=== PATIENT | female | born 1950 | race Caucasian/White ===

== ENCOUNTER → 2019-11-21 14:42 | Outpatient (BNVA) | payer MEDICARE, OTHER, SELFPAY | PROVIDERS: Family Provider Family Medicine; PCP Family Medicine; Referring Provider Family Medicine; Visit Provider Otolaryngology | DX: H92.01 Otalgia, right ear (principal); H93.11 Tinnitus, right ear; R51 Headache; M54.2 Cervicalgia | CPT/HCPCS: 99204; 99214 ==

== ENCOUNTER 2019-12-10 12:27 | Outpatient (CLI) | payer MEDICARE, OTHER, SELFPAY ==
--- NOTE | 2019-12-10 12:31 | CT_ITS ---
WS: [id number] CT CHEST, ABDOMEN AND PELVIS WITH CONTRAST HISTORY: BLADDER CANCER/COMPARE TO LAST CT TECHNIQUE: Contiguous 5 mm axial imaging performed through the chest, abdomen and pelvis with IV cont rast, oral contrast has been provided. Coronal and sagittal reformats chest. Coronal and sagittal ref ormats through the abdomen and pelvis. All CT scans at [facility] use at least one of the se dose optimization techniques: automated exposure control; mA and/or kV adjustment per patient size (includes targeted exams where dose is matched to clinical indication); or iterative reconstruction. CONTRAST: Omnipaque 300; 95 mL IV. DLP: 1941.29 mGy.cm COMPARISON: 07/15/[address]: No mass or nodule. There is some vague groundglass attenuation at the lingula which was not present on the prior study. No pleural effusion or pericardial effusion. Heart size is normal. No me diastinal or hilar adenopathy. Atherosclerosis aorta is mild. More extensive calcification in the cor onary arteries. Small hiatal hernia. Abdomen CT: Hepatic steatosis. No bile duct dilatation or mass. Gallbladder, spleen and pancreas are negative for any acute process. No adrenal mass. Kidneys are normal size with no enhancing masses. Mi ld atherosclerosis aorta with no aneurysm. No adenopathy, free fluid or free air in the abdomen. Pelvic CT: Nondistended urinary bladder. Surgical clips are noted within the adnexa. No free fluid or adenopathy. Appendix is not definitely visualized. Moderate spondylitic changes throughout the thora cic and lumbar spine. Most significant degenerative changes at L4-5. No osteoblastic or osteolytic milad ne disease. CT/CT chest abd pel wo/w con IMPRESSION: 1. No metastatic disease within the chest, abdomen or pelvis. 2. Postsurgical changes in the pelvis are stable. 3. New groundglass attenuation in the lingula. May be an area of inflammation. Consider [address] follow-up. 4. Hepatic steatosis.
[2019-12-10 13:27] LABS: Blood Urea Nitrogen 15 mg/dL (8-23); Glomerular Filtration Rate 62.1 mL/min (90-130)
[2019-12-10] MEDS: iohexol 300 mg/mL 100 mL Btl IV (14:00)
== END 2019-12-10 12:28 | disposition home or self-care (01) ==
LOC: CT 12:28
PROVIDERS: Family Provider Family Medicine; PCP Family Medicine; Visit Provider Radiology Radiation Oncology
DX: C67.9 Malignant neoplasm of bladder, unspecified (principal); K76.0 Fatty (change of) liver, not elsewhere classified
CPT/HCPCS: 36415; 71260; 74178; 82565; 84520

== ENCOUNTER → 2019-12-11 13:34 | Outpatient (BNVA) | payer MEDICARE, OTHER, SELFPAY | PROVIDERS: Family Provider Family Medicine; PCP Family Medicine; Visit Provider Otolaryngology | DX: H92.01 Otalgia, right ear (principal); H93.91 Unspecified disorder of right ear; H93.13 Tinnitus, bilateral; R51 Headache; M54.2 Cervicalgia | CPT/HCPCS: 99213; 99214 ==

== ENCOUNTER 2019-12-16 09:47 | Outpatient (CLI) | payer MEDICARE, OTHER, SELFPAY ==
--- NOTE | 2019-12-16 11:33 | ONCRAD EPV_ITS ---
Radiation Oncology Established Patient Visit Patient: Clif MR#: [id number] : 1950> Age: 69> Sex: Female> Dictated by: Dr. Gallito Leija Date of Service: 12/16/2019 Referring Physician(s) : Dr. Murali Cisse Diagnosis: C67.9 - Malignant neoplasm of bladder, unspecified, Diagnosed 12/12/2017 (Active) Stage II, T2, N0, M0 Radiotherapy to Date: Course: C1 Treatment Site: BLADDER BOOST [id number] Ref. ID: [id number] Energy: 6X Dose/Fx (cGy): 200 #Fx: Dose Correction (cGy): 0 Total Dose (cGy): 2,200 Start Date: 03/20/2018 End Date: 04/03/2018 Elapsed Days: 14 Course: C1 Treatment Site: [id number] Ref. 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 She underwent a cystoscopy by Dr. Cisse in 01/2019. It showed no evidence of residual or recurrent disease according to the patient. She underwent a CT of abdomen pelvis on 03/11/2019. It showed no lymphadenopathy or metastatic disease. Nondistended urinary bladder makes evaluation of the bladder neoplasm difficult. Groundglass and subpleural opacifications in the right lower lobe are probably postinflammatory/infectious. Follow-up CT of chest/abdomen/pelvis on 07/15/2019 showed no evidence of metastatic disease in the chest, abdomen or pelvis. Previously described right lower lobe pulmonary infiltrates has resolved completely. There is no suspicious pulmonary parenchymal opacities, mediastinal, hilar, inguinal or pelvic lymphadenopathy. The patient is doing well. She denies dysuria, frequency, hematuria, urgency, nocturia, incontinence, diarrhea, rectal irritation or bleeding. She underwent cystoscopy by Dr. Cisse 2 month ago which showed no evidence of recurrence in the bladder. She underwent a CT of chest/abdomen/pelvis on December 10, 2019 which showed no definite evidence of metastatic disease in the chest, abdomen or pelvis. Postsurgical changes in the pelvis are stable. A new groundglass attenuation in the lingula may be an area of inflammation, consider 6-month CT of the chest follow-up. Current Medications: Acetaminophen, atorvastatin Calcium, aZO Cranberry, co Q 10, hair/Skin/Nails, lisinopril-Hydrochlorothiazide, multi For Her 50+, nabumetone, omeprazole. Allergies: No Known Allergies Current Complaints / Review of Systems: Constitutional - Complains of moderate fatigue. Denies lack of appetite, fever and night sweats. Eyes - Denies blurred vision. ENMT - Complains of ear pain on the right side. Complains of tinnitus. Denies dysphagia, problems with hearing, mouth dryness, stomatitis and altered taste. Neck - Denies neck pain. Integumentary - Denies rash. Breasts - Denies pain. Cardiovascular - Denies arrhythmias, chest pain and edema. Respiratory - Denies cough, dyspnea and wheezing. Gastrointestinal - Complains of occasional diarrhea. Denies abdominal pain, constipation, heartburn / dyspepsia, melena / GI bleeding, nausea and vomiting. Genitourinary (F) - Complains of nocturia gets up about 1 to 2 times per night. Denies dysuria, frequency, hematuria, urgency, vaginal discharge / bleeding and vaginal spotting. Musculoskeletal - Denies bone pain and joint pain. Neurologic - Denies dizziness, abnormal gait and headaches. Endocrine - Denies diabetes and thyroid disease. Hematologic/Lymphatic - Denies tender or enlarged lymph nodes.. Vital Signs: Performed on 12/16/2019 10:18 AM BMI - 33.088 kg/m2 (high), Height - 66.00 in, Weight - 205.0 lbs, Temperature - 97.9 f, Pulse - 72, Respiration - 18, O2 Sat - 95 % (low), Pain - 0 and BP - 114/ 72 mm(hg). Physical Exam: General: Alert and oriented x 3. No acute distress. HEENT: Normocephalic, atraumatic. Extraocular Movements Intact: Pupils Equal, Round, Reactive to Light and Accommodation: Sclerae anicteric. Oral cavity is clear without lesions, masses or ulcers. NECK: Supple without supraclavicular or jugular lymphadenopathy. LUNGS: Clear to auscultation bilaterally without rales, rhonchi or wheeze. HEART: Regular rate and rhythm, normal S1 and S2 without murmur, gallop or rub. MUSCULOSKELETAL: No tenderness or percussion pain over the axial skeleton, scapulae or pelvis. ABDOMEN: Soft, nontender, nondistended without masses or organomegaly. Bowel sounds are present. EXTREMITIES: No peripheral edema is identified. Limited motor and sensory examination are grossly intact and symmetric bilaterally. NEUROLOGIC: Cranial nerves II ???XII are grossly intact. Normal sensation, strength 5/5 in all extremities, normal gait, no ataxia. Performance Status: 1 - No physically strenuous activity, but ambulatory and able to carry out light or sedentary work (e.g. office work, light house work). (ECOG) Lab: None pending. Pathology: papillary transitional cell carcinoma Imaging: See HPI Impression/plan: There is no definite clinical evidence of recurrence or metastatic disease. The patient will continue cancer surveillance. She will see Dr. Cisse and undergo cystoscopy in January 2020. I will order a CT of the chest abdomen and pelvis in 6 months. She will follow up with us afterwards. Signed by: 12/16/2019 11:31:50 AM <<Signature on File>> CPT Code: CPT Code: Signed By: Dr. Gallito Leija, 12/16/2019 11:31:51 AM <<Signature on File>>
== END 2019-12-16 09:48 | disposition home or self-care (01) ==
LOC: ONCMED 09:52
PROVIDERS: Family Provider Family Medicine; PCP Family Medicine; Visit Provider Radiology Radiation Oncology
DX: Z08 Encounter for follow-up examination after completed treatment for malignant neoplasm (principal); Z85.51 Personal history of malignant neoplasm of bladder; Z92.3 Personal history of irradiation
CPT/HCPCS: 99213

== ENCOUNTER 2019-12-20 14:24 | Outpatient (CLI) | payer MEDICARE, OTHER, SELFPAY ==
--- NOTE | 2019-12-20 15:52 | CT_ITS ---
WS: [id number] CT TEMPORAL BONES TECHNIQUE: Noncontrast CT of the temporal bones with coronal and sagittal reformatted images. CLINICAL INFORMATION: ear problem COMPARISON: None. DLP: [address] scans at [facility] use at least one of these dose optimization techniques: automat ed exposure control; mA and/or kV adjustment per patient size (includes targeted exams where dose is matched to clinical indication); or iterative reconstruction. FINDINGS: Mastoid air cells are well aerated. Fluid within the ethmoid air cells consistent with mild sinusitis. Mild mucosal thickening in the paranasal sinuses. Normal visualized posterior nasopharynx . RIGHT: Mastoid air cells are well aerated. Normal external auditory canal. Ossicles are normal in appearance . Middle ear is well aerated. Normal tegmen tympani. Semicircular canals and cochlea are normal in ap pearance. Prussak's space is normal. Normal inner ear structures. Normal vestibular aqueduct. Facial nerve recess is normal. LEFT: Mastoid air cells are well aerated. Normal external auditory canal. Ossicles are normal in appearance . Middle ear is well aerated. Normal tegmen tympani. Semicircular canals and cochlea are normal in ap pearance. Prussak's space is normal. Normal inner ear structures. Normal vestibular aqueduct. Facial nerve recess is normal. Visualized intracranial contents and posterior fossa are normal. CT/CT temporal bone wo con* [id number] IMPRESSION: 1. Mastoid air cells are well aerated bilaterally. 2. Middle ears are well aerated bilaterally. 3. Normal ossicles and inner ear structures bilaterally 4. Unremarkable temporal bones.
== END 2019-12-20 14:25 | disposition home or self-care (01) ==
LOC: CT 14:25
PROVIDERS: Family Provider Family Medicine; PCP Family Medicine; Visit Provider Otolaryngology
DX: H93.90 Unspecified disorder of ear, unspecified ear (principal); R51 Headache
CPT/HCPCS: 70480

== ENCOUNTER → 2019-12-26 14:02 | Outpatient (BNVA) | payer MEDICARE, OTHER, SELFPAY | PROVIDERS: Family Provider Family Medicine; PCP Family Medicine; Visit Provider Otolaryngology | DX: H92.01 Otalgia, right ear (principal); R51 Headache; M54.2 Cervicalgia; H93.13 Tinnitus, bilateral; H93.90 Unspecified disorder of ear, unspecified ear | CPT/HCPCS: 99213; 99214 ==

== ENCOUNTER 2019-12-26 15:02 | Outpatient (CLI) | payer MEDICARE, OTHER, SELFPAY ==
[2019-12-26 16:35] LABS: Erythrocyte Sedimentation Rate 12 mm/hr (0-15)
== END 2019-12-26 15:03 | disposition home or self-care (01) ==
LOC: LAB 15:08
PROVIDERS: Family Provider Family Medicine; PCP Family Medicine; Visit Provider Otolaryngology
DX: M31.6 Other giant cell arteritis (principal)
CPT/HCPCS: 36415; 85651

== ENCOUNTER → 2020-01-23 09:51 | Outpatient (BNVA) | payer MEDICARE, OTHER, SELFPAY | PROVIDERS: Family Provider Family Medicine; PCP Family Medicine; Referring Provider Otolaryngology; Visit Provider Specialist | DX: M79.7 Fibromyalgia (principal); M54.2 Cervicalgia; Z87.891 Personal history of nicotine dependence | CPT/HCPCS: 20552; 99204; J1030; J3490 ==

== ENCOUNTER → 2020-03-11 10:19 | Outpatient (BNVA) | payer MEDICARE, OTHER, SELFPAY | PROVIDERS: Family Provider Family Medicine; PCP Family Medicine; Visit Provider Specialist | DX: M54.81 Occipital neuralgia (principal); M54.2 Cervicalgia; H93.11 Tinnitus, right ear; Z87.891 Personal history of nicotine dependence | CPT/HCPCS: 64450; 99213; J1030; J3490 ==

== ENCOUNTER → 2020-06-17 13:35 | Outpatient (BNVA) | payer MEDICARE, OTHER, SELFPAY | PROVIDERS: Family Provider Family Medicine; PCP Family Medicine; Visit Provider Urology | DX: C67.2 Malignant neoplasm of lateral wall of bladder (principal); N30.40 Irradiation cystitis without hematuria; R33.8 Other retention of urine | CPT/HCPCS: 81001 ==

== ENCOUNTER 2020-06-19 09:20 | Outpatient (CLI) | payer MEDICARE, OTHER, SELFPAY ==
--- NOTE | 2020-06-19 09:34 | CT_ITS ---
WS: [id number] CT CHEST, ABDOMEN AND PELVIS WITH CONTRAST HISTORY: RESTAGING MALIGNANT NEOPLASM OF BLADDER TECHNIQUE: Contiguous 5 mm axial imaging performed through the chest, abdomen and pelvis with IV cont rast, oral contrast has been provided. Coronal and sagittal reformats chest. Coronal and sagittal ref ormats through the abdomen and pelvis. All CT scans at [facility] use at least one of the se dose optimization techniques: automated exposure control; mA and/or kV adjustment per patient size (includes targeted exams where dose is matched to clinical indication); or iterative reconstruction. CONTRAST: Omnipaque 300; 95 mL IV. DLP: 2325.04 mGycm COMPARISON: 12/10/2019 and 07/15/[address]: Very minimal interstitial thickening and dependent changes in the posterior superior segmen t of the lower lungs and also in the lateral RIGHT lower lobe. These findings are new since the prior study. No suspicious masses. Mild atherosclerosis aorta and coronary artery calcifications. No signi ficant mediastinal or hilar adenopathy. Small hiatal hernia. No osteoblastic or osteolytic bone disea se. Spondylitic changes are moderate in the mid to lower thoracic spine. Abdomen CT: Diffuse moderate hepatic steatosis. No metastatic disease. Gallbladder, spleen, pancreas and adrenal glands are stable. No metastatic disease. Mildly lobulated renal cortex. No obstruction o r solid mass. Atherosclerosis aorta. No aneurysms. No adenopathy or ascites. No GI tract obstruction. Pelvic CT: No free fluid or adenopathy. Prior hysterectomy. Urinary bladder is not distended. There a re numerous surgical clips in the pelvis. Moderate degenerative disc disease throughout the lumbar spine. No osteoblastic or osteolytic disease to suggest metastatic bone disease. CT/CT chest abd pel w con* IMPRESSION: 1. No evidence for metastatic disease to the chest, abdomen and pelvis. 2. New minimal peripheral areas of subpleural opacification superior segments of the lower lobes and lateral RIGHT lower lobe. May be related to pneumonitis. This would not be typical for metastatic disease. More likely inflammatory carlos g disease. 3. Prior hysterectomy. 4. Hepatic steatosis.
[2020-06-19] MEDS: iohexol 300 mg/mL 50 mL Btl PO (10:15)
[2020-06-19 10:57] LABS: Blood Urea Nitrogen 16 mg/dL (8-23)
[2020-06-19] MEDS: iohexol 300 mg/mL 100 mL Btl IV (11:05)
== END 2020-06-19 09:21 | disposition home or self-care (01) ==
LOC: RADWPI 09:24
PROVIDERS: Family Provider Family Medicine; PCP Family Medicine; Visit Provider Radiology Radiation Oncology
DX: C67.9 Malignant neoplasm of bladder, unspecified (principal); K76.0 Fatty (change of) liver, not elsewhere classified
CPT/HCPCS: 71260; 74177; 82565; 84520; Q9967

== ENCOUNTER 2020-06-22 06:08 | Outpatient (CLI) | payer MEDICARE, OTHER, SELFPAY ==
--- NOTE | 2020-06-22 14:40 | ONCRAD EPV_ITS ---
Radiation Oncology Established Patient Visit Patient: Wu Wright [id number] : 1950> Age: 70> Sex: Female> Dictated by: Dr. Pradip Menjivar Date of Service: 06/22/2020 Referring Physician(s) : Dr. Murali Cisse Diagnosis T2 N0 M0 Grade II, papillary transitional cell carcinoma involving the left posterior and posterior lateral bladder wall just cephalad and lateral to the left ureteral orifice. Treatment Rendered: -) Trans urethral resection of bladder tumor x2 -) Definitive concurrent chemoradiation therapy. Radiation consisted of an aggregate dose of 65.2 Gy over 35 fractions, via IMRT with 6X energy (02/12/2018-04/03/2018). Concurrent chemotherapy consisted of Q3 weekly cisplatin & 5-FU. Current History: In follow-up today, the patient reports no complaints. She reports no hematuria, no diarrhea, no dysuria, no abdominal pain, no shortness of breath, and no bone pain. Her most recent CT of the chest abdomen and pelvis (06/19/2020 versus 12/10/2019 and 07/15/2019) revealed no concern for disease recurrence or metastasis. There were new minimal peripheral areas of subpleural opacification in the superior segments of the lower lobes and lateral right lower lobe which radiographically appeared related to pneumonitis. Radiographically it was considered more likely to be inflammatory lung disease. The patient's most recent cystoscopy (06/17/2020) revealed diffuse radiation cystitis changes, but no evidence for disease recurrence. Current Medications: Acetaminophen, atorvastatin Calcium, aZO Cranberry, co Q 10, hair/Skin/Nails, lisinopril-Hydrochlorothiazide, multi For Her 50+, nabumetone, omeprazole. Allergies: No Known Allergies Current Complaints / Review of Systems: Constitutional - Complains of mild fatigue. Denies lack of appetite, fever, night sweats and change in weight. Eyes - Denies blurred vision and double vision. ENMT - Denies dysphagia, ear pain, mouth dryness, stomatitis and altered taste. Neck - Denies neck pain. Integumentary - Denies rash. Breasts - Denies pain. Cardiovascular - Denies arrhythmias, chest pain and edema. Respiratory - Denies cough, dyspnea and wheezing. Gastrointestinal - Denies abdominal pain, constipation, diarrhea, heartburn / dyspepsia, melena / GI bleeding, nausea and vomiting. Genitourinary (F) - Complains of nocturia gets up about 1 to 3 times per night and urgency with standing up if had been sitting for awhile. Denies dysuria, frequency, hematuria, vaginal discharge / bleeding and vaginal spotting. Musculoskeletal - Complains of joint pain both knees and the neck. Denies bone pain and muscle weakness. Neurologic - Denies dizziness, abnormal gait and headaches. Endocrine - Denies diabetes and thyroid disease. Hematologic/Lymphatic - Denies tender or enlarged lymph nodes.. Vital Signs: Performed on 06/22/2020 11:30 AM BMI - 33.185 kg/m2 (high), Height - 66.00 in, Weight - 205.6 lbs, Temperature - 97.6 f, Pulse - 82, Respiration - 20, O2 Sat - 94 % (low), Pain - 0 and BP - 127/ 76 mm(hg). Physical Exam: General: Alert and oriented x 3. No acute distress. HEENT: Normocephalic, atraumatic. Extraocular Movements Intact: Pupils Equal, Round, Reactive to Light and Accommodation: Sclerae anicteric. Oral cavity is clear without lesions, masses or ulcers. NECK: Supple without supraclavicular or jugular lymphadenopathy. LUNGS: Clear to auscultation bilaterally without rales, rhonchi or wheeze. HEART: Regular rate and rhythm, normal S1 and S2 without murmur, gallop or rub. MUSCULOSKELETAL: No tenderness or percussion pain over the axial skeleton, scapulae or pelvis. EXTREMITIES: No peripheral edema is identified. Limited motor and sensory examination are grossly intact and symmetric bilaterally. NEUROLOGIC: Cranial nerves II ???XII are grossly intact. Normal sensation, strength 5/5 in all extremities, normal gait, no ataxia. Performance Status: 1 - No physically strenuous activity, but ambulatory and able to carry out light or sedentary work (e.g. office work, light house work). (ECOG) Lab: None pending. Impression: The patient is a 70-year-old female with T2 N0 M0 papillary transitional cell carcinoma involving the left posterior and posterior lateral bladder wall just cephalad and lateral to the left ureteral orifice. She has been treated with definitive concurrent chemoradiation therapy to a total dose of 65.2 Gy/35 fractions (completed 03/2018). The patient is 2 years out from completing definitive treatment, and she has no evidence for disease recurrence per a recent CT of the chest abdomen and pelvis (06/19/2020), as well as a recent cystoscopy (06/17/2020). The patient reports no symptoms consistent with late complications from therapy. I have requested the patient return for follow-up in [address] of the chest abdomen and pelvis. It is recommended that her surveillance going forward consist of: -) Annual CT of the chest abdomen and pelvis x3 years (i.e., up to and including 05/2023); -) Cystoscopy every 6 months x 2 years, followed by annual cystoscopy until 03/2028. Signed by, MD Dr. Pradip Keating06/22/2020 2:38:25 PM <<Signature on File>> Time spent with patient: CPT Code: CPT Code:
== END 2020-06-22 06:09 | disposition home or self-care (01) ==
PROVIDERS: PCP Family Medicine; Visit Provider Radiology Radiation Oncology
DX: Z08 Encounter for follow-up examination after completed treatment for malignant neoplasm (principal); Z85.51 Personal history of malignant neoplasm of bladder; Z92.3 Personal history of irradiation; Z92.21 Personal history of antineoplastic chemotherapy
CPT/HCPCS: 99213

== ENCOUNTER → 2021-01-04 10:17 | Outpatient (BNVA) | payer MEDICARE, OTHER, SELFPAY | PROVIDERS: PCP Family Medicine; Visit Provider Urology | DX: C67.2 Malignant neoplasm of lateral wall of bladder (principal); N30.40 Irradiation cystitis without hematuria; R33.8 Other retention of urine; I10 Essential (primary) hypertension; M19.90 Unspecified osteoarthritis, unspecified site; Z90.710 Acquired absence of both cervix and uterus; E78.00 Pure hypercholesterolemia, unspecified; Z98.890 Other specified postprocedural states | CPT/HCPCS: 81003 ==

== ENCOUNTER 2021-01-28 08:18 | Outpatient (CLI) | payer MEDICARE, OTHER, SELFPAY ==
--- NOTE | 2021-01-28 08:25 | MM_ITS ---
WS: [id number] BILATERAL SCREENING DIGITAL MAMMOGRAM WITH CAD HISTORY: SCREENING COMPARISON: 02/10/2017 and 01/27/2016 Bilateral CC and MLO views submitted. Computer aided detection analyzed. Breast composition: The breasts are heterogeneously dense, which may obscure small masses. No suspici ous masses, microcalcifications or architectural distortion. Benign scattered calcifications. MM/[id number] IMPRESSION: BI-RADS: 2-Benign FOLLOW UP: 1 Year Follow-up
== END 2021-01-28 08:19 | disposition home or self-care (01) ==
LOC: RADSHAW 08:25
PROVIDERS: PCP Family Medicine; Visit Provider Family Medicine
DX: Z12.31 Encounter for screening mammogram for malignant neoplasm of breast (principal)
CPT/HCPCS: 77067

== ENCOUNTER 2022-04-01 09:04 | Outpatient (CLI) | payer MEDICARE, OTHER, SELFPAY ==
--- NOTE | 2022-04-01 09:19 | MM_ITS ---
WS: [id number] VIEWS: MLO and CC views both breasts. 3D digital tomosynthesis is also included in this exam. Comparison made with prior exam of 01/09/2013, 01/15/2014, 01/21/2015, 01/27/2016, 02/10/2017, 01/28/2021.. Findings: There was no sign of mass, architectural distortion or suspicious calcification in either breast. He terogeneously dense MM/[place] [id number] Impression: BI-RADS: 2-Benign FOLLOW-UP: 1 Year Follow-up This mammogram was also analyzed by the Computer Aided Detection System R2 Imag e Supervisor Die Casting.
== END 2022-04-01 09:05 | disposition home or self-care (01) ==
LOC: RAD 09:09
PROVIDERS: PCP Family Medicine; Visit Provider Family Medicine
DX: Z12.31 Encounter for screening mammogram for malignant neoplasm of breast (principal)
CPT/HCPCS: 77063; 77067

== ENCOUNTER 2022-08-16 08:33 | Outpatient (CLI) | payer MEDICARE, OTHER, SELFPAY ==
--- NOTE | 2022-08-16 | US_ITS ---
WS: [id number] RIGHT UPPER QUADRANT ULTRASOUND HISTORY: RIGHT UPPER QUADRANT ULTRASOUND DUE TO ELEVATED LFTs. COMPARISON: 06/11/2020 Liver: 15.9 cm in length. Normal size liver. Mild coarse echotexture and hepatic steatosis. No mass o r bile duct dilatation. Portal Vein: Normal hepatopetal flow with monophasic waveform. Gallbladder: Normally distended gallbladder with no stones or wall thickening. CBD: 0.4 cm Pancreas: Normal size and echogenicity. Right kidney: 9.8 cm in length. Normal size and echogenicity. No hydronephrosis or mass. Aorta and IVC: Unremarkable abdominal aorta and IVC. No ascites. US/US abdomen limited [id number] IMPRESSION: 1. Normal gallbladder. 2. Very mild hepatic steatosis.
== END 2022-08-16 08:34 | disposition home or self-care (01) ==
PROVIDERS: PCP Family Medicine; Visit Provider Family Medicine
DX: R10.11 Right upper quadrant pain (principal); R94.5 Abnormal results of liver function studies; K76.0 Fatty (change of) liver, not elsewhere classified
CPT/HCPCS: 76705

== ENCOUNTER → 2022-11-09 13:19 | Outpatient (BNVA) | payer MEDICARE, OTHER, SELFPAY | PROVIDERS: PCP Family Medicine; Visit Provider Otolaryngology | DX: H81.10 Benign paroxysmal vertigo, unspecified ear (principal); I95.1 Orthostatic hypotension; H93.13 Tinnitus, bilateral; H90.3 Sensorineural hearing loss, bilateral | CPT/HCPCS: 99202; 99204 ==

== ENCOUNTER 2023-04-04 09:44 | Outpatient (CLI) | payer MEDICARE, OTHER, SELFPAY ==
--- NOTE | 2023-04-04 09:52 | MM_ITS ---
WS: [id number] BILATERAL 3D TOMOSYNTHESIS DIGITAL SCREENING MAMMOGRAPHY WITH CAD CLINICAL INFORMATION: SCREENING HISTORY: Screening mammogram. No current complaints. COMPARISON: 2021 TECHNIQUE: Bilateral CC and MLO views. FINDINGS: The breasts are composed of heterogeneous fibroglandular density tissue, which can limit the detectio n of small underlying mass lesions. No suspicious mass, asymmetry, calcifications, or architectural d istortion. No evidence of malignancy. Punctate and lucent centered calcifications. Vascular calcifica tion. MM/[id number] IMPRESSION: BI-RADS: 2-Benign FOLLOW UP: 1 Year Follow-up Recommend return to annual screening mammography.
== END 2023-04-04 09:45 | disposition home or self-care (01) ==
PROVIDERS: PCP Family Medicine; Visit Provider Family Medicine
DX: Z12.31 Encounter for screening mammogram for malignant neoplasm of breast (principal)
CPT/HCPCS: 77063; 77067

== ENCOUNTER → 2023-06-28 13:12 | Outpatient (BNVA) | payer MEDICARE, OTHER, SELFPAY | PROVIDERS: PCP Family Medicine; Referring Provider Family Medicine; Visit Provider Dermatology | DX: L57.0 Actinic keratosis (principal); L82.1 Other seborrheic keratosis; L57.8 Other skin changes due to chronic exposure to nonionizing radiation; L81.4 Other melanin hyperpigmentation; Z85.828 Personal history of other malignant neoplasm of skin; C04.9 Malignant neoplasm of floor of mouth, unspecified | CPT/HCPCS: 11102; 17000; 17003; 99203 ==

== ENCOUNTER → 2023-07-10 10:53 | Outpatient (BNVA) | payer MEDICARE, OTHER, SELFPAY | PROVIDERS: PCP Family Medicine; Visit Provider Dermatology | DX: D04.5 Carcinoma in situ of skin of trunk (principal); Z87.891 Personal history of nicotine dependence | CPT/HCPCS: 17262 ==

== ENCOUNTER → 2024-01-08 12:59 | Outpatient (BNVA) | payer MEDICARE, OTHER, SELFPAY | PROVIDERS: PCP Family Medicine; Visit Provider Dermatology | DX: L57.8 Other skin changes due to chronic exposure to nonionizing radiation (principal); L82.1 Other seborrheic keratosis; D18.01 Hemangioma of skin and subcutaneous tissue; Z86.007 Personal history of in-situ neoplasm of skin; L81.4 Other melanin hyperpigmentation; L57.0 Actinic keratosis | CPT/HCPCS: 17000; 99213 ==

== ENCOUNTER 2024-04-17 11:00 | Outpatient (CLI) | payer MEDICARE, OTHER, SELFPAY ==
--- NOTE | 2024-04-17 11:10 | MM_ITS ---
WS: [id number] VIEWS: MLO and CC views both breasts. 3D digital tomosynthesis is also included in this exam. Comparison made with prior exam of 01/05/2012, 01/09/2013, 01/15/2014, 01/21/2015, 01/27/2016, 02/10/2017, 01/28/2021, 04/01/2022, 04/04/2023,. Findings: There was no sign of mass, architectural distortion or suspicious calcification in either breast. The breasts are heterogeneously dense which may obscure small masses MM/[id number] Impression: BI-RADS: 2-Benign finding. FOLLOW-UP: 1 Year Follow-up This mammogram was also analyzed by the Computer Aided Detection System R2 Imag e Linen Attendant.
== END 2024-04-17 11:01 | disposition home or self-care (01) ==
LOC: RAD 11:01
PROVIDERS: PCP Family Medicine; Visit Provider Family Medicine
DX: Z12.31 Encounter for screening mammogram for malignant neoplasm of breast (principal)
CPT/HCPCS: 77063; 77067

== ENCOUNTER 2024-07-15 13:42 | Outpatient (CLI) | payer MEDICARE, OTHER, SELFPAY ==
--- NOTE | 2024-07-15 13:45 | XR_ITS ---
WS: [id number] DEXA (DUAL ENERGY X-RAY ABSORPTIOMETRY) Bone mineral density was performed using a Text[employer] machine. HISTORY: ASYMPTOMATIC MENOPAUSAL STATE COMPARISON: None available. Lumbar spine BMD (L1-L4): 1.487 g/cm2 T score: 2.6 Z score: 3.5 Total hip BMD: Left: 0.843 g/cm2. T score: -1.3 Z score: -0.2 Right: 0.838 g/cm2. T score: -1.3 Z score: -0.2 10 year probability of a major osteoporotic fracture is 13.5%. XR/XR DEXA axial skeleton* [id number] IMPRESSION: OSTEOPENIA based upon the WHO classification for females.
== END 2024-07-15 13:43 | disposition home or self-care (01) ==
LOC: RAD 13:43
PROVIDERS: PCP Family Medicine; Visit Provider Family Medicine
DX: Z13.820 Encounter for screening for osteoporosis (principal); Z78.0 Asymptomatic menopausal state; M85.80 Other specified disorders of bone density and structure, unspecified site
CPT/HCPCS: 77080

== ENCOUNTER 2024-09-12 12:56 | Outpatient (CLI) | payer MEDICARE, OTHER, SELFPAY ==
[2024-09-12 13:32] LABS: Basophils # 0.1 10^3/uL (0.0-0.1); Basophils % 0.8 %; Eosinophils # 0.4 10^3/uL (0.0-0.8); Eosinophils % 4.6 %; Hematocrit 40.7 % (36-47); Lymphocytes # 2.7 10^3/uL (0.8-4.8); Lymphocytes % 32.2 %; Mean Corpuscular HGB Conc 33.9 g/dL (30-55); Mean Corpuscular Hemoglobin 31.7 pg (27-33); Mean Corpuscular Volume 93.3 fl (85-98); Monocytes # 0.9 10^3/uL (0.2-0.9); Monocytes % 10.8 %; Neutrophils # 4.27 10^3/uL (1.8-7.7); Neutrophils % 51.4 %; Nucleated Red Blood Cells % 0 %; Platelet Count 321 10^3/cmm (157-399); Red Blood Count 4.36 10^6/uL (3.85-5.65); Red Cell Distribution Width 11.3 % (12.1-15.1); White Blood Count 8.32 10^3/uL (3.29-11.43)
[2024-09-12 13:33] LABS: Erythrocyte Sedimentation Rate 3 mm/hr (0-15)
[2024-09-12 13:52] LABS: Alanine Aminotransferase 45 U/L (0-33); Albumin Level 4.4 g/dL (3.5-5.2); Alkaline Phosphatase 67 U/L (35-105); Anion Gap 16.9 (5-19); Aspartate Amino Transferase 39 U/L (0-32); Blood Urea Nitrogen 22 mg/dL (8-23); Calcium 9.5 mg/dL (8.5-10.5); Carbon Dioxide 25 mmol/L (22-29); Chloride 99 mmol/L (98-107); Globulin 2.7 g/dL (1.3-4.6); Glucose 129 mg/dL (65-115); Osmolality Calculated 289 mOsm/kg (285-295); Potassium 3.9 mmol/L (3.5-5.1); Sodium 137 mmol/L (136-145); Total Bilirubin 0.4 mg/dL (0.15-1.2); Total Protein 7.1 g/dL (6.6-8.7)
[2024-09-12 13:59] LABS: Rapid Plasma Reagin Syphilis Nonreactive (Nonreactive)
[2024-09-12 14:02] LABS: HIV 1 & 2 Antibody Non-Reactive (Non-Reactiv); HIV 1 & 2 Antigen Non-Reactive (Non-Reactiv)
[2024-09-13 07:58] LABS: Lymes IGG WB <0.90 index
[2024-09-16 17:14] LABS: Quantiferon Mitogen 4.67 IU/mL; Quantiferon Nil 0.03 IU/mL; Quantiferon TB Gold NEGATIVE (NEGATIVE)
[2024-09-16 22:15] LABS: Bartonella Henselae IgG AB NEGATIVE; Bartonella Henselae IgM AB NEGATIVE; Bartonella Quintana IgG AB NEGATIVE
== END 2024-09-12 12:57 | disposition home or self-care (01) ==
LOC: LAB 13:07
PROVIDERS: PCP Family Medicine; Visit Provider Student in an Organized Health Care Education/Training Program
DX: H34.8120 Central retinal vein occlusion, left eye, with macular edema (principal)
CPT/HCPCS: 36415; 80053; 85025; 85651; 86140; 86480; 86592; 86611; 86617; 87806

== ENCOUNTER 2024-09-23 09:18 | Outpatient (CLI) | payer MEDICARE, OTHER, SELFPAY ==
--- NOTE | 2024-09-23 09:23 | CT_ITS ---
WS: [id number] CTA HEAD AND NECK TECHNIQUE: Contrast enhanced CTA of the head and neck with coronal and sagittal reformatted images an d maximum intensity projection (MIP) images. NASCET criteria utilized. CLINICAL INFORMATION: CRVO W/MACULAR EDEMA COMPARISON: None. DLP: 1251.[address] scans at [facility] use at least one of these dose optimization techniques: automated e xposure control; mA and/or kV adjustment per patient size (includes targeted exams where dose is matc hed to clinical indication); or iterative reconstruction. FINDINGS: No evidence intracranial hemorrhage or mass effect. Moderate small vessel changes with mode rate parenchymal volume loss. Tiny chronic lacunar infarcts posterior limb RIGHT internal capsule. RIGHT: RIGHT common carotid artery is patent. Mild atheromatous plaque RIGHT carotid bulb extending i nto the ICA. No significant RIGHT ICA stenosis. RIGHT ICA is patent to the skull base. Cavernous cabrera tid calcification. LEFT: LEFT common carotid artery is patent. Calcified atheromatous plaque LEFT carotid bulb extending into the ICA. LEFT ICA stenosis measures approximately 46%. LEFT ICA is patent to the skull base. Ca vernous carotid calcification. Retropharyngeal course of both cervical ICAs. Straightening of the normal cervical lordosis. Slight a nterolisthesis C3 on C4. Disc narrowing worse at C4-C5 C5-C6 and C6-C7 disc osteophyte complexes. Ant erior hypertrophic changes cervical spine. INTRACRANIAL CTA: Codominant and patent vertebral arteries bilaterally. Vertebral arteries are patent to the basilar ju nction. Normal vascularity to the MVA REACTOR OPERATOR territory bilaterally. Both ICAs are patent at the skull base. Cavernous carotid calcification. Normal vascularity to the AC A and MCA territories bilaterally. No evidence of flow-limiting stenosis. Patent anterior communicati ng artery. CT/CT angio headneck* [id number] IMPRESSION: 1. No evidence intracranial hemorrhage or mass effect. 2. Moderate small vessel changes with moderate parenchymal volume loss. 3. No significant RIGHT cervical ICA stenosis. 4. Moderate calcified atheromatous disease LEFT carotid bulb extending into th e ICA. LEFT ICA stenosis measures approximately 46%. 5. LEFT dominant vertebral artery. Both vertebral arteries are patent. 6. No flow-limiting intracranial stenosis.
[2024-09-23] MEDS: iohexol 350 mg/mL 500 mL Btl (per mL) IV (09:53)
== END 2024-09-23 09:19 | disposition home or self-care (01) ==
LOC: RAD 09:21
PROVIDERS: PCP Family Medicine; Visit Provider Student in an Organized Health Care Education/Training Program
DX: H34.8120 Central retinal vein occlusion, left eye, with macular edema (principal); I67.82 Cerebral ischemia; G31.89 Other specified degenerative diseases of nervous system; I65.22 Occlusion and stenosis of left carotid artery
CPT/HCPCS: 70496; 70498